=== PATIENT | female | born 1970 | race African-American/Black ===

== ENCOUNTER 2016-04-09 23:28 | Emergency (ER) | payer MEDICARE ==
[2012-06-11 14:56] VITALS: BMI 31.7
== END 2016-04-10 00:11 | disposition home or self-care (01) ==
LOC: D.ER 23:28
DX: R51 Headache (principal); I10 Essential (primary) hypertension; H54.8 Legal blindness, as defined in USA; F17.200 Nicotine dependence, unspecified, uncomplicated

== ENCOUNTER → 2016-05-28 16:46 | Outpatient (CLI) | payer MEDICARE ==
[2012-06-11 14:56] VITALS: BMI 31.7
== END | disposition home or self-care (01) ==
LOC: D.MAMMO 09:15
DX: Z12.31 Encounter for screening mammogram for malignant neoplasm of breast (principal)

== ENCOUNTER 2016-09-24 08:31 | Emergency (ER) | payer MEDICARE ==
[2012-06-11 14:56] VITALS: BMI 31.7
== END 2016-09-24 10:21 | disposition home or self-care (01) ==
LOC: D.ER 08:31
DX: S43.401A Unspecified sprain of right shoulder joint, initial encounter (principal); W19.XXXA Unspecified fall, initial encounter; Y93.89 Activity, other specified; Y92.89 Other specified places as the place of occurrence of the external cause; M75.101 Unspecified rotator cuff tear or rupture of right shoulder, not specified as traumatic; I10 Essential (primary) hypertension; H54.8 Legal blindness, as defined in USA; R20.0 Anesthesia of skin; F17.200 Nicotine dependence, unspecified, uncomplicated

== ENCOUNTER → 2016-10-10 12:54 | Outpatient (CLI) | payer MEDICARE ==
[2012-06-11 14:56] VITALS: BMI 31.7
== END | disposition home or self-care (01) ==
LOC: D.MRI 12:54
DX: M54.12 Radiculopathy, cervical region (principal)

== ENCOUNTER 2016-11-05 19:47 | Emergency (ER) | payer MEDICARE ==
[2012-06-11 14:56] VITALS: BMI 31.7
== END 2016-11-05 23:39 | disposition home or self-care (01) ==
LOC: D.ER 19:47
DX: M54.12 Radiculopathy, cervical region (principal); I10 Essential (primary) hypertension; H54.8 Legal blindness, as defined in USA; F17.200 Nicotine dependence, unspecified, uncomplicated

== ENCOUNTER → 2017-07-22 05:53 | Outpatient (CLI) | payer MEDICARE ==
[2012-06-11 14:56] VITALS: BMI 31.7
== END | disposition home or self-care (01) ==
LOC: D.MAMMO 07-08 15:45
DX: Z12.31 Encounter for screening mammogram for malignant neoplasm of breast (principal)

== ENCOUNTER 2017-11-03 02:11 | Emergency (ER) | payer MEDICARE ==
[~2017-11-03] VITALS: Ht 162.6 cm; Wt 104.3 kg
[2017-11-03 02:13] VITALS: Ht 162.6 cm; Wt 104.3 kg
[2017-11-03] MEDS ORDERED: ABILIFY2 MG PO (02:15)
[2017-11-03] MEDS ORDERED: HYDROCODONE-APA1 TAB PO (02:15)
[2017-11-03] MEDS ORDERED: CYMBALTA60 MG PO (02:15)
[2017-11-03] MEDS ORDERED: XANAX1 MG PO (02:16)
[2017-11-03] MEDS ORDERED: TOPAMAX50 MG PO (02:16)
[2017-11-03] MEDS ORDERED: PROAIR HFA8.5 GM INH (02:16)
[2017-11-03] MEDS ORDERED: MAXZIDE 75/501 TAB PO (02:16)
[2017-11-03] MEDS ORDERED: NORVASC10 MG PO (02:16)
[2017-11-03 02:39] LABS: APPEARANCE CLEAR (CLEAR); BILIRUBIN NEGATIVE (NEGATIVE); COLOR YELLOW (YELLOW); GLUCOSE NEGATIVE (NEGATIVE); KETONE NEGATIVE (NEGATIVE); NITRITE NEGATIVE (NEGATIVE); PROTEIN NEGATIVE (NEGATIVE); SPECIFIC GRAVITY 1.015 (1.005-1.020); UROBILINOGEN NORMAL (NORMAL)
[2017-11-03 02:46] LABS: UDS - AMPHET NEGATIVE QUAL (NEGATIVE); UDS - BARB NEGATIVE QUAL (NEGATIVE); UDS - BENZO POSITIVE QUAL (NEGATIVE); UDS - COCAINE NEGATIVE QUAL (NEGATIVE); UDS - OPIATE NEGATIVE QUAL (NEGATIVE); UDS - PCP NEGATIVE QUAL (NEGATIVE); UDS - THC POSITIVE QUAL (NEGATIVE)
[2017-11-03 03:06] LABS: BASOPHILS 0.4 % (0-2); EOSINOPHILS 2.3 % (0-7); HEMATOCRIT 38.9 % (36.0-48.0); HEMOGLOBIN 13.2 g/dL (12-16); IMMATURE GRANULOCYTES 0.1 % (0-5); MCH 30.6 pg (26.0-34.0); MCHC 33.9 g/dL (31.0-37.0); MCV 90.3 fL (80.0-100.0); MEAN PLATELET VOLUME 9.3 fL (7.4-10.4); MONOCYTES 5.6 % (2-11); NEUTROPHILS 67.6 % (40-80); PLATELET COUNT 248 10x3/uL (130-400); RBC 4.31 10x6/uL (4.00-5.40); WBC 14.6 10x3/uL (4.8-10.8)
[2017-11-03 03:19] LABS: ALBUMIN 3.5 g/dL (3.4-5.0); ALKALINE PHOSPHATASE 85 U/L (46-116); ALT (SGPT) 25 U/L (10-68); BILIRUBIN - TOTAL 0.18 mg/dL (0.2-1.3); CALC OSMOLALITY 278 mosm/kg (275-300); CALCIUM 8.7 mg/dL (8.5-10.1); CARBON DIOXIDE 27.8 mmol/L (21.0-32.0); CHLORIDE - SERUM 105 mmol/L (98-107); CREATININE - SERUM 0.8 mg/dL (0.6-1.3); GLUCOSE 100 mg/dL (74-106); POTASSIUM - SERUM 3.5 mmol/L (3.5-5.1); PROTEIN - SERUM 7.1 g/dL (6.4-8.2); SODIUM 139 mmol/L (136-145); UREA NITROGEN 16 mg/dL (7-18); eGFR NON AFRICAN AMERICAN 82 mL/min (90-120)
[2017-11-03] MEDS ORDERED: FLAGYL500 MG PO (03:58)
[2017-11-03] MEDS ORDERED: DOXYCYCLINE HY100 M2 PO (03:58)
[2017-11-03 04:29] VITALS: BP 145/78
[2017-11-05 03:12] LABS: CHLAMYDIA TRACHOMATIS, NAA Negative (Negative)
== END 2017-11-03 04:25 | disposition home or self-care (01) ==
LOC: D.ER 02:11
PROVIDERS: Family Medicine
DX: G43.909 Migraine, unspecified, not intractable, without status migrainosus (principal); A64 Unspecified sexually transmitted disease; I10 Essential (primary) hypertension; E05.90 Thyrotoxicosis, unspecified without thyrotoxic crisis or storm; F17.200 Nicotine dependence, unspecified, uncomplicated

== ENCOUNTER 2019-02-06 05:50 | Emergency (ER) | payer MEDICARE ==
[~2019-02-06] VITALS: Ht 162.6 cm; Wt 106.8 kg
[~2019-02-06 05:50] MED LIST: ABILIFY2 MG PO; CYMBALTA60 MG PO; DOXYCYCLINE HY100 M2 PO; FLAGYL500 MG PO; HYDROCODONE-APA1 TAB PO; MAXZIDE 75/501 TAB PO; NORVASC10 MG PO; PROAIR HFA8.5 GM INH; TOPAMAX50 MG PO; XANAX1 MG PO
[2019-02-06 05:58] VITALS: Ht 162.6 cm; Wt 106.8 kg
[2019-02-06 07:22] LABS: HEMATOCRIT 39.7 % (36.0-48.0); HEMOGLOBIN 13.2 g/dL (12-16); MCH 29.9 pg (26.0-34.0); MCHC 33.2 g/dL (31.0-37.0); MCV 89.8 fL (80.0-100.0); MEAN PLATELET VOLUME 9.8 fL (7.4-10.4); PLATELET COUNT 349 10x3/uL (130-400); RBC 4.42 10x6/uL (4.00-5.40); RDW 13.2 % (11.5-14.5); WBC 25.2 10x3/uL (4.8-10.8)
[2019-02-06 07:26] LABS: AMYLASE - SERUM 21 U/L (25-115)
[2019-02-06 07:28] LABS: LIPASE 47 U/L (73-393)
[2019-02-06 07:31] LABS: ALBUMIN 2.9 g/dL (3.4-5.0); ALKALINE PHOSPHATASE 131 U/L (46-116); ALT (SGPT) 64 U/L (10-68); CHLORIDE - SERUM 95 mmol/L (98-107); CREATININE - SERUM 0.7 mg/dL (0.6-1.3); POTASSIUM - SERUM 3.9 mmol/L (3.5-5.1); PROTEIN - SERUM 7.2 g/dL (6.4-8.2); SODIUM 131 mmol/L (136-145); eGFR NON AFRICAN AMERICAN > 90 mL/min (90-120)
[2019-02-06 07:38] LABS: BILIRUBIN - TOTAL 1.45 mg/dL (0.2-1.3); CALC OSMOLALITY 281 mosm/kg (275-300); GLUCOSE 155 mg/dL (74-106); UREA NITROGEN 56 mg/dL (7-18)
[2019-02-06 07:41] LABS: EOSINOPHILS 1 % (0-7); LYMPHOCYTES 12 % (15-50); NEUTROPHILS 87 % (40-80); PLATELET ESTIMATE NORMAL
[2019-02-06 08:51] LABS: CARBON DIOXIDE 28.6 mmol/L (21.0-32.0)
[2019-02-06 11:03] LABS: APPEARANCE HAZY (CLEAR); BILIRUBIN NEGATIVE (NEGATIVE); COLOR DK YELLOW (YELLOW); GLUCOSE NEGATIVE (NEGATIVE); KETONE NEGATIVE (NEGATIVE); NITRITE NEGATIVE (NEGATIVE); PROTEIN 1+ mg/dL (NEGATIVE); RED CELLS - URINE >50 /hpf (0-5); UROBILINOGEN NORMAL (NORMAL); WHITE CELLS - URINE >50 /hpf (NEGATIVE)
[2019-02-06 11:04] LABS: BACTERIA MODERATE /hpf (NEGATIVE); EPITHELIAL CELLS 0-5 /hpf (0-5)
[2019-02-06 15:27] VITALS: BP 117/70
== END 2019-02-06 15:33 | disposition other institution (70) ==
LOC: D.ER 05:50
PROVIDERS: Emergency Medicine; Family Medicine
DX: N12 Tubulo-interstitial nephritis, not specified as acute or chronic (principal); R93.89 Abnormal findings on diagnostic imaging of other specified body structures; E05.90 Thyrotoxicosis, unspecified without thyrotoxic crisis or storm; I10 Essential (primary) hypertension; J45.909 Unspecified asthma, uncomplicated

== ENCOUNTER 2020-08-18 07:49 | Day surgery (SDC) | payer MEDICAID ==
[~2020-08-18] VITALS: Ht 163.8 cm; Wt 145.5 kg
[~2020-08-18 07:49] MED LIST changes: +ALBUTEROL SULF8.5 GM INH; +GABAPENTIN100 MG PO; +KLONOPIN0.5 MG PO; +STERAPRED DS 1010 MG PO; +TYLENOL W/CODEI1 TAB PO
[2020-08-18 08:25] LABS: BASOPHILS 0.8 % (0-2); EOSINOPHILS 3.4 % (0-7); HEMATOCRIT 42.7 % (36.0-48.0); HEMOGLOBIN 13.9 g/dL (12-16); MCH 28.4 pg (26.0-34.0); MCHC 32.6 g/dL (31.0-37.0); MCV 87.2 fL (80.0-100.0); MEAN PLATELET VOLUME 7.9 fL (7.4-10.4); MONOCYTES 4.4 % (2-11); NEUTROPHILS 71.4 % (40-80); PLATELET COUNT 294 10x3/uL (130-400); RDW 13.2 % (11.5-14.5); WBC 11.5 10x3/uL (4.8-10.8)
[2020-08-18 08:38] LABS: ANION GAP 11.5 mmol/L (8-16); CALCIUM 9.4 mg/dL (8.5-10.1); CARBON DIOXIDE 30.4 mmol/L (21.0-32.0); POTASSIUM - SERUM 3.9 mmol/L (3.5-5.1)
--- NOTE | 2020-08-18 10:05 | NUR ---
STATES DOES NOT WISH TO SPEAK WITH ANYONE FROM [facility]. ALREADY IN TREATMENT WITH COUNSELOR.
[2020-08-18 10:18] VITALS: BP 147/94; Ht 163.8 cm; Wt 145.5 kg
[2020-08-18] MEDS ORDERED: HYDROCODON-ACE1 EA10 PO (10:18)
--- NOTE | 2020-08-18 11:51 | NUR ---
RECEIVED AFTER EGD, AWAKE/ALERT. IV INFUSING. PATIENT DRINKING LIQUIDS WITHOUT NAUSEA
--- NOTE | 2020-08-18 12:09 | NUR ---
1200 IV REMOVED WITH CATH INTACT. DISCHARGE INSTRUCTIONS REIEWED AND VERBALIZED UNDERSTANDING. 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
--- NOTE | 2020-08-19 09:09 | OP ---
PATIENT NAME: HUGO RAMIRZE MEDICAL RECORD: [id number] :74 LOCATION:[facility] ADMISSION DATE: SURGEON: MAYELIN CAMARGO MD DATE OF OPERATION: 08/18/2020 DATE OF SERVICE: 08/18/2020 PROCEDURE: Upper endoscopy. PREOPERATIVE DIAGNOSES: Abdominal pain, acid reflux. MEDICATION: Propofol 240 mg per anesthesia. DESCRIPTION OF PROCEDURE: The patient was placed in the left lateral position and made comfortable. The endoscope was advanced through the mouth and advanced to the second part of the duodenum. The entire examined esophagus was normal. In the gastric body was erythema consistent with mild gastritis. Random gastric biopsies were taken. The duodenum was normal. Small bowel biopsies were taken. The patient tolerated the procedure well. There were no immediate complications. FINAL DIAGNOSES: Normal esophagus, mild gastritis, normal duodenum. PLAN: Check histology results. Advance diet. Return to GI office. Of note, this patient is already on a proton pump inhibitor. TRANSINT:[id number] Voice Confirmation ID: [id number] DOCUMENT ID: [id number] MAYELIN CAMARGO MD at 0909 CC: [id number] DICTATION DATE: 08/18/20 1127 CMV DRIVER: 08/18/20 1212 [facility] 08/18/20 [id number] [place] [address]
== END 2020-08-18 12:10 | disposition home or self-care (01) ==
LOC: D.OPS 07:49
PROVIDERS: Anesthesiology; ATTEND Internal Medicine Gastroenterology
DX: R10.10 Upper abdominal pain, unspecified (principal); K21.9 Gastro-esophageal reflux disease without esophagitis; K29.70 Gastritis, unspecified, without bleeding; K57.30 Diverticulosis of large intestine without perforation or abscess without bleeding; Z86.010 Personal history of colon polyps; R12 Heartburn